=== PATIENT | male | born 1970 | race African-American/Black ===

== ENCOUNTER 2017-05-31 09:02 | Emergency (ER) | payer BC | END 2017-05-31 11:13 | disposition home or self-care (01) | LOC: ERS 09:02 | DX: J06.9 Acute upper respiratory infection, unspecified (principal); I10 Essential (primary) hypertension; F41.9 Anxiety disorder, unspecified | CPT/HCPCS: 99283 ==

== ENCOUNTER 2017-09-11 14:10 | Emergency (ER) | payer OTHER, SELFPAY ==
[2017-09-11 14:26] LABS: Bilirubin Negative (Negative); Blood, Urine Large (Negative); Clarity CLEAR (Clear); Glucose, Urine (Dipstick) Negative (Negative); Leukocyte Negative (Negative); Nitrite Negative (Negative); Protein, Urine (Dipstick) Negative (Neg-Trace); pH, Urine 5.5 (5.0-9.0)
[2017-09-11 14:49] LABS: Bacteria/HPF None Seen HPF (None Seen); Hyaline Casts/LPF NONE SEEN LPF (0-3 Hyaline); Squamous Epithelial 0-3 HPF (0-3); WBC/HPF None Seen HPF (0-3)
--- NOTE | 2017-09-11 14:52 | RAD ---
RIGHT HAND 3 VIEWS: HISTORY: Trauma. Pain and swelling. FINDINGS: Mildly displaced distal 5th metacarpal fracture. Associated soft tissue swelling. Mild deformity. No additional fractures. IMPRESSION: Distal 5th metacarpal fracture. POS: [facility]
[2017-09-11] MEDS ORDERED: Ketorolac Tromethamine 30 MG/ML VIAL ONE (16:11)
--- NOTE | 2017-09-11 16:22 | RAD ---
RIGHT HAND THREE VIEWS: HISTORY: Fracture. Status post reduction. COMPARISON: 09/11/2017 at 2:29 p.m. FINDINGS: There is evidence of interval placement of a plastic splint. Limited evaluation of fine bony detail. Mild displacement/dislocation of the distal 5th metacarpal head is again noted. IMPRESSION: Slight interval improvement in alignment. Residual displacement does remain. POS: [facility]
--- NOTE | 2017-09-11 16:38 | CT ---
CT ABDOMEN AND PELVIS NONCONTRAST SUPINE RENAL CALYX PROTOCOL: INDICATIONS: Abdominal pain. FINDINGS: The lung bases are clear where visualized. There is no urolithiasis or obstructive uropathy. There is a radiopaque density with streak artifact adjacent to the anterior aspect of the gallbladder. The re is a calcific density at the posterior right pelvis, which may relate to a phlebolith. This does not demonstrate the appearance of a ureteral calculus, and there is no obvious ureteral dilatation. There are osseous degenerative changes. There is a small sclerotic focus of the right ilium, which m ay relate to a bone island. Evaluation if otherwise limited on the basis of the noncontrast techniqu e. IMPRESSION: No definitive evidence of urolithiasis or obstructive uropathy. Evaluation is otherwise limited on the basis of this noncontrast technique. POS: [facility]
== END 2017-09-11 17:03 | disposition home or self-care (01) ==
LOC: ERS 14:10
DX: S62.336A Displaced fracture of neck of fifth metacarpal bone, right hand, initial encounter for closed fracture (principal); R31.9 Hematuria, unspecified; I34.1 Nonrheumatic mitral (valve) prolapse; I10 Essential (primary) hypertension; F41.9 Anxiety disorder, unspecified; W22.01XA Walked into wall, initial encounter
CPT/HCPCS: 26605; 74176; 81003; 81015; 96372; J1885